=== PATIENT | male | born 1995 | race Caucasian/White ===

== ENCOUNTER → 2019-08-04 | Outpatient (CLI) | payer BC ==
--- NOTE | 2019-08-04 16:07 | MR ---
EXAMINATION TYPE: MR lumbar spine wo/w con DATE OF EXAM: 08/04/2019 COMPARISON: Outside x-rays dated 07/26/2019 HISTORY: Low back pain, abn normal xray TECHNIQUE: Multiplanar, multisequence images of the lumbar spine were acquired utilizing [address] gadolinium contrast. FINDINGS: The lumbar spine vertebral bodies maintain normal vertebral body heights and alignment. Mul tilevel disc desiccation is seen at L4-L5 and L5-S1, most pronounced at L5-S1. Conus medullaris is un remarkable terminating at L1. Bone marrow signal is overall within normal limits although lower limit s of normal. No pathologic enhancement is seen of the lumbar spine. L1-L2: Normal disc appearance without desiccation. No herniation, protrusion or disc bulging. No ca nal stenosis is present. Foramina are patent bilaterally. L2-L3: There is a small broad-based disc bulge without focal herniation. No spinal canal stenosis nor neural foraminal narrowing. L3-L4: There is a broad-based disc bulge without focality. No spinal canal stenosis nor neural forami nal narrowing. L4-L5: There is a very small right paracentral disc herniation superimposed on a broad-based disc bul ge. Only minimal bilateral neural foraminal narrowing is seen. Ligamentum flavum buckling is noted wi th minimal facet hypertrophy. No spinal canal stenosis. L5-S1: There is disc desiccation and a broad-based disc bulge resulting in minimal bilateral neural f oraminal narrowing without spinal canal stenosis. There is a very small left paracentral annular tear . IMPRESSION: 1. Very small right paracentral disc herniation at L4-L5 without spinal canal stenosis. 2. Degenerative disc disease at L2-L3 with very small left paracentral annular tear at L5-S1. Degener ative disc disease results in only minimal bilateral neural foraminal narrowing at L4-L5 and L5-S1. 3. No pathologic enhancement of the lumbar spine.
== END | disposition home or self-care (01) ==
LOC: RADMRIMAIN 11:33
PROVIDERS: ATTEND Family Medicine
DX: M48.061 Spinal stenosis, lumbar region without neurogenic claudication (principal); M51.26 Other intervertebral disc displacement, lumbar region; M51.36 Other intervertebral disc degeneration, lumbar region
CPT/HCPCS: 72158; A9585